=== PATIENT | female | born 1945 | race Caucasian/White ===

== ENCOUNTER 2017-01-01 21:22 | Inpatient (IN) | payer MEDICARE ==
[~2017-01-01] VITALS: Ht 157.5 cm; Wt 61.5 kg
[~2017-01-01 21:22] MED LIST: ASPI-515 PO; CO Q10 PO; ESTRODIOL PO; FLUO20CA19 PO; TAGAMET; WILL BRING LIST
[2017-01-01] MEDS ORDERED: DIAZEPAM 5 MG/ML, 2ML ONE ×2 (22:25→22:26)
[2017-01-01] MEDS ORDERED: MORPHINE SULFATE 4 MG/ML, 1ML ONE (22:25)
[2017-01-01] MEDS ORDERED: ONDANSETRON 2MG/ML, 2ML ONE (22:26)
[2017-01-01] MEDS ORDERED: KETOROLAC 30 MG/1 ML ONE (22:45)
[2017-01-01] MEDS ORDERED: SODIUM CHLORIDE 0.9% 1,000ML IVBOLUS ONE (23:00)
[2017-01-01] MEDS ORDERED: SODIUM CHLORIDE FLUSH 10ML SYR IVF ONE (23:00)
[2017-01-01] MEDS ORDERED: METHOCARBAMOL 1,000 MG in DEXTROSE 5% 100 ML IV ONE (23:00)
[2017-01-01] MEDS ORDERED: KETOROLAC 30 MG/1 ML IVPush ONE (23:00)
[2017-01-01 23:10] LABS: HEMATOCRIT 50.9 % (34.6-47.8); HEMOGLOBIN 16.6 g/dL (11.7-16.4); WHITE BLOOD COUNT 23.6 x10^3/uL (3.4-10)
[2017-01-01 23:14] LABS: DIFF TOTAL CELLS COUNTED 100 CELL DIFF
[2017-01-01 23:18] LABS: BLOOD UREA NITROGEN 25 mg/dL (7-18)
[2017-01-01] MEDS ORDERED: HYDROmorphone 1 MG/ML, 1ML ONE (23:27)
[2017-01-01] MEDS ORDERED: HYDROmorphone 1 MG/ML, 1ML IV ONE (23:30)
[2017-01-02] VITALS (16 sets, daily range): BP systolic 70–127; BP diastolic 50–68
[2017-01-02] LABS: VERIFY COUNTS? YES
[2017-01-02] MEDS ORDERED: SODIUM CHLORIDE 0.9% 1,000ML IVBOLUS ONE
[2017-01-02] MEDS ORDERED: OMNIPAQUE 350 MG/ML, 100ML BOTTLE ONE (00:24)
[2017-01-02] MEDS ORDERED: THROMBIN 20,000 UNIT VIAL TP ONE (00:28)
[2017-01-02] MEDS ORDERED: HEPARIN 1,000 UNITS/ML, 30ML ONE ×3 (00:29→03:18)
[2017-01-02] MEDS ORDERED: BACITRACIN 50,000 UNIT ONE ×2 (00:29→01:56)
[2017-01-02] MEDS ORDERED: PAPAVERINE 30 MG/ML, 2ML ONE (00:30)
[2017-01-02] MEDS ORDERED: FENTANYL PF 100 MCG/2ML ONE ×3 (01:12→06:19)
[2017-01-02] MEDS ORDERED: PHENYLEPHRINE 10 MG/ML ONE (01:28)
[2017-01-02] MEDS ORDERED: ONDANSETRON 2MG/ML, 2ML ONE (01:28)
[2017-01-02] MEDS ORDERED: CEFAZOLIN 1,000 MG ONE (01:28)
[2017-01-02] MEDS ORDERED: SUCCINYLCHOLINE 20 MG/ML, 10ML ONE (01:28)
[2017-01-02] MEDS ORDERED: ROCURONIUM 10 MG/ML ONE (01:28)
[2017-01-02] MEDS ORDERED: PROPOFOL 10 MG/ML, 20ML ONE (01:28)
[2017-01-02] MEDS ORDERED: ONDANSETRON 2MG/ML, 2ML IVPush PRN ×2 (02:30→06:30)
[2017-01-02] MEDS ORDERED: LABETALOL 5MG/ML, 20ML IV PRN ×2 (02:30→06:30)
[2017-01-02] MEDS ORDERED: OXYcodone 5 MG/5 ML ORAL.SOL UDC PO PRN ×2 (02:30→06:30)
[2017-01-02] MEDS ORDERED: HYDROmorphone 1 MG/ML, 1ML IV PRN ×2 (02:30→06:30)
[2017-01-02] MEDS ORDERED: hydrALAzine 20 MG/ML, 1ML IV PRN ×2 (02:30→06:30)
[2017-01-02] MEDS ORDERED: FENTANYL PF 100 MCG/2ML IV PRN ×2 (02:30→06:30)
[2017-01-02] MEDS ORDERED: ALBUMIN HUMAN 5% 500 ML ONE ×2 (02:51→03:52)
[2017-01-02] MEDS ORDERED: HEPARIN 25,000 UNITS/500ML PMX 500 ML IV SCH ×2 (04:30→08:00)
[2017-01-02] MEDS ORDERED: VISIPAQUE 270 MG/ML, 150ML BOTTLE ONE (04:48)
[2017-01-02 06:11] LABS: ASPARTATE AMINO TRANSFERASE 13 U/L (15-37); BLOOD UREA NITROGEN 17 mg/dL (7-18)
[2017-01-02 06:41] LABS: HEMATOCRIT 28.7 % (34.6-47.8); HEMOGLOBIN 9.5 g/dL (11.7-16.4)
[2017-01-02] MEDS ORDERED: HEPARIN 5,000 UNITS/ML, 1ML IV ONE (08:00)
[2017-01-02] MEDS ORDERED: HEPARIN 25,000 UNITS/500ML PMX 500 ML IV PRN (08:00)
[2017-01-02] MEDS ORDERED: HEPARIN 5,000 UNITS/ML, 1ML IV PRN (08:00)
[2017-01-02] MEDS ORDERED: D5%-LR+KCL 20MEQ 1,000 ML IV SCH (08:00)
[2017-01-02] MEDS ORDERED: ONDANSETRON 2MG/ML, 2ML IV PRN (08:00)
[2017-01-02] MEDS: CEFAZOLIN PMX 1GM/50ML 50 ML IVPB SCH ×2 (08:16→15:41)
[2017-01-02] MEDS ORDERED: LACTATED RINGERS 500 ML IVBOLUS ONE (09:00)
[2017-01-02 10:54] LABS: WHITE BLOOD COUNT 9.7 x10^3/uL (3.4-10)
[2017-01-02 10:56] LABS: HEMATOCRIT 13.9 % (34.6-47.8); HEMOGLOBIN 4.5 g/dL (11.7-16.4)
[2017-01-02] MEDS ORDERED: D5%-LACTATED RINGERS 1,000 ML IV SCH (11:00)
[2017-01-02 11:05] LABS: BLOOD UREA NITROGEN 18 mg/dL (7-18)
[2017-01-02] MEDS ORDERED: SODIUM CHLORIDE 0.9% 500 ML IV SCH (11:05)
[2017-01-02 11:28] LABS: ANTI-Xa-UNFRACTIONATED HEP 0.47 IU/mL (0.30-0.70)
[2017-01-02] MEDS ORDERED: PROTAMINE SULFATE 50 MG in SODIUM CHLORIDE 0.9% 50 ML IV ONE (11:30)
[2017-01-02] MEDS: NOREPINEPHRINE 4 MG in SODIUM CHLORIDE 0.9% 246 ML IV PRN ×2 (13:33→22:05)
[2017-01-02] MEDS: LACTATED RINGERS 1,000 ML IV SCH ×2 (13:34→18:35)
[2017-01-02 16:53] LABS: HEMATOCRIT 28.7 % (34.6-47.8); HEMOGLOBIN 9.7 g/dL (11.7-16.4); WHITE BLOOD COUNT 9.5 x10^3/uL (3.4-10)
[2017-01-02] MEDS ORDERED: FUROSEMIDE 20 MG/2 ML IV ONE (17:30)
[2017-01-02 21:54] LABS: HEMATOCRIT 25.3 % (34.6-47.8); HEMOGLOBIN 8.6 g/dL (11.7-16.4)
[2017-01-03 08:16] LABS: HEMOGLOBIN 8.2 g/dL (11.7-16.4)
[2017-01-03] MEDS ORDERED: HEPARIN 5,000 UNITS/ML, 1ML ONE (08:18)
[2017-01-03] MEDS ORDERED: HEPARIN 25,000 UNITS/500ML PMX 500 ML ONE (08:18)
[2017-01-03] MEDS ORDERED: HEPARIN 5,000 UNITS/ML, 1ML IV ONE (09:00)
[2017-01-03] MEDS: HEPARIN 25,000 UNITS/500ML PMX 500 ML IV PRN (09:00)
[2017-01-03] MEDS: LACTATED RINGERS 1,000 ML IV SCH ×4 (09:30→21:35)
[2017-01-03] MEDS: FAMOTIDINE 20 MG TABLET PO SCH ×2 (11:16→20:34)
[2017-01-03] MEDS: FLUOXETINE 20 MG CAPSULE PO SCH (11:16)
[2017-01-03 12:46] LABS: BLOOD UREA NITROGEN 15 mg/dL (7-18)
[2017-01-03 12:51] LABS: HEMATOCRIT 20.7 % (34.6-47.8)
[2017-01-03 14:10] VITALS: BP 101/54
[2017-01-03] MEDS: HEPARIN 5,000 UNITS/ML, 1ML IV PRN (17:03)
[2017-01-03 19:31] LABS: HEMATOCRIT 23.3 % (34.6-47.8); HEMOGLOBIN 7.7 g/dL (11.7-16.4)
[2017-01-04 01:28] LABS: HEMOGLOBIN 7.3 g/dL (11.7-16.4)
[2017-01-04 01:32] LABS: HEMATOCRIT 21.9 % (34.6-47.8)
[2017-01-04 02:14] VITALS: BP 107/47
[2017-01-04 02:32] VITALS: BP 97/47
[2017-01-04 04:00] VITALS: BP 119/57
[2017-01-04] MEDS: LACTATED RINGERS 1,000 ML IV SCH ×3 (04:10→18:50)
[2017-01-04 04:41] VITALS: BP 110/54
[2017-01-04 06:05] LABS: BLOOD UREA NITROGEN 10 mg/dL (7-18)
[2017-01-04 06:31] LABS: HEMATOCRIT 27.3 % (34.6-47.8); HEMOGLOBIN 9.2 g/dL (11.7-16.4)
[2017-01-04] MEDS: FAMOTIDINE 20 MG TABLET PO SCH ×2 (08:32→21:00)
[2017-01-04] MEDS: FLUOXETINE 20 MG CAPSULE PO SCH (08:33)
[2017-01-04] MEDS ORDERED: BUPIVACAINE/PF 0.5% ONE (10:15)
[2017-01-04 12:28] LABS: HEMATOCRIT 28.3 % (34.6-47.8); HEMOGLOBIN 9.3 g/dL (11.7-16.4); WHITE BLOOD COUNT 7.8 x10^3/uL (3.4-10)
[2017-01-04] MEDS: HEPARIN 25,000 UNITS/500ML PMX 500 ML IV PRN (16:41)
[2017-01-04] MEDS ORDERED: FENTANYL PF 100 MCG/2ML ONE (18:04)
[2017-01-04] MEDS ORDERED: KETAMINE 10 MG/ML, 20ML ONE (18:04)
[2017-01-04] MEDS ORDERED: PROPOFOL 10 MG/ML, 20ML ONE (18:07)
[2017-01-04] MEDS ORDERED: ONDANSETRON 2MG/ML, 2ML ONE (18:07)
[2017-01-04] MEDS ORDERED: CEFAZOLIN 1,000 MG ONE (18:07)
[2017-01-04] MEDS ORDERED: FENTANYL PF 100 MCG/2ML IV PRN (19:00)
[2017-01-04] MEDS ORDERED: ONDANSETRON 2MG/ML, 2ML IVPush PRN (19:00)
[2017-01-04] MEDS ORDERED: LABETALOL 5MG/ML, 20ML IV PRN (19:00)
[2017-01-04] MEDS ORDERED: OXYcodone 5 MG/5 ML ORAL.SOL UDC PO PRN (19:00)
[2017-01-04] MEDS ORDERED: HYDROmorphone 1 MG/ML, 1ML IV PRN (19:00)
[2017-01-04] MEDS ORDERED: PROMETHAZINE 25 MG/ML, 1ML IV PRN (19:00)
[2017-01-04] MEDS ORDERED: hydrALAzine 20 MG/ML, 1ML IV PRN (19:00)
[2017-01-04] MEDS ORDERED: ALBUTEROL/IPRATROPIUM 2.5MG/0.5MG, 3 ML ONE (20:25)
[2017-01-04] MEDS ORDERED: hydrALAzine 20 MG/ML, 1ML ONE (20:28)
[2017-01-05] MEDS: HYDROcodone/APAP 10/325 MG TABLET PO PRN ×3 (01:11→14:22)
[2017-01-05] MEDS: LACTATED RINGERS 1,000 ML IV SCH ×2 (01:13→09:12)
[2017-01-05 04:00] VITALS: BP 119/59
[2017-01-05 04:40] LABS: BLOOD UREA NITROGEN 8 mg/dL (7-18)
[2017-01-05 04:44] LABS: ASPARTATE AMINO TRANSFERASE 53 U/L (15-37)
[2017-01-05 04:53] LABS: HEMATOCRIT 25.5 % (34.6-47.8); HEMOGLOBIN 8.6 g/dL (11.7-16.4); WHITE BLOOD COUNT 10.9 x10^3/uL (3.4-10)
[2017-01-05] MEDS: FLUOXETINE 20 MG CAPSULE PO SCH (08:22)
[2017-01-05] MEDS: FAMOTIDINE 20 MG TABLET PO SCH ×2 (08:22→23:05)
[2017-01-05] MEDS ORDERED: KETOROLAC 30 MG/1 ML IVPush ONE (17:30)
[2017-01-05] MEDS ORDERED: MAGNESIUM SULFATE PMX 4GM/100M 100 ML IV ONE (18:30)
[2017-01-05] MEDS: HEPARIN 25,000 UNITS/500ML PMX 500 ML IV PRN (23:04)
[2017-01-06] VITALS (7 sets, daily range): BP systolic 84–124; BP diastolic 48–68
[2017-01-06 01:43] LABS: HEMATOCRIT 18.8 % (34.6-47.8); HEMOGLOBIN 6.2 g/dL (11.7-16.4)
[2017-01-06] MEDS ORDERED: SODIUM CHLORIDE 0.9% 1,000ML IVBOLUS ONE ×2 (02:30→10:30)
[2017-01-06] MEDS: HYDROcodone/APAP 10/325 MG TABLET PO PRN ×2 (04:27→22:19)
[2017-01-06] MEDS: HEPARIN 5,000 UNITS/ML, 1ML IV PRN (06:11)
[2017-01-06 07:52] LABS: HEMATOCRIT 25.6 % (34.6-47.8); HEMOGLOBIN 8.6 g/dL (11.7-16.4); WHITE BLOOD COUNT 11.3 x10^3/uL (3.4-10)
[2017-01-06] MEDS: FLUOXETINE 20 MG CAPSULE PO SCH (09:00)
[2017-01-06] MEDS: FAMOTIDINE 20 MG TABLET PO SCH (09:00)
[2017-01-06 10:18] LABS: HEMATOCRIT 19.8 % (34.6-47.8); HEMOGLOBIN 6.6 g/dL (11.7-16.4)
[2017-01-06] MEDS ORDERED: GLYCOPYRROLATE 0.2MG/1ML ONE (10:45)
[2017-01-06] MEDS ORDERED: ONDANSETRON 2MG/ML, 2ML ONE (10:45)
[2017-01-06] MEDS ORDERED: CEFAZOLIN 1,000 MG ONE (10:45)
[2017-01-06] MEDS ORDERED: NEOSTIGMINE 1 MG/ML, 10ML ONE (10:45)
[2017-01-06] MEDS ORDERED: ROCURONIUM 10 MG/ML ONE (10:45)
[2017-01-06] MEDS ORDERED: ETOMIDATE 20 MG/10 ML ONE (10:45)
[2017-01-06] MEDS ORDERED: PHENYLEPHRINE 10 MG/ML ONE (10:45)
[2017-01-06] MEDS ORDERED: HYDROmorphone 1 MG/ML, 1ML IV PRN (12:00)
[2017-01-06] MEDS ORDERED: PROMETHAZINE 25 MG/ML, 1ML IV PRN (12:00)
[2017-01-06] MEDS ORDERED: ALBUTEROL SULFATE 2.5 MG/3 ML NPPB PRN (12:00)
[2017-01-06] MEDS ORDERED: LABETALOL 5MG/ML, 20ML IV PRN (12:00)
[2017-01-06] MEDS ORDERED: EPHEDRINE 50 MG/ML, 1ML IVPush PRN (12:00)
[2017-01-06] MEDS ORDERED: ACETAMINOPHEN 325 MG TABLET PO PRN (12:00)
[2017-01-06] MEDS ORDERED: FENTANYL PF 100 MCG/2ML IV PRN (12:00)
[2017-01-06] MEDS ORDERED: ONDANSETRON 2MG/ML, 2ML IVPush PRN (12:00)
[2017-01-06] MEDS ORDERED: METOPROLOL 1 MG/ML, 5ML IV PRN (12:00)
[2017-01-06] MEDS ORDERED: hydrALAzine 20 MG/ML, 1ML IV PRN (12:00)
[2017-01-06] MEDS ORDERED: OXYcodone 5 MG/5 ML ORAL.SOL UDC PO PRN (12:00)
[2017-01-06 12:05] LABS: HEMATOCRIT 29.2 % (34.6-47.8); HEMOGLOBIN 9.7 g/dL (11.7-16.4)
[2017-01-06] MEDS: SODIUM CHLORIDE 0.9% 1,000 ML IV SCH (17:17)
[2017-01-06] MEDS ORDERED: BISACODYL 10 MG SUPP PR PRN (20:00)
[2017-01-06] MEDS ORDERED: POLYETHYLENE GLYCOL 17 GM PACKET PO PRN (20:00)
[2017-01-06 20:55] LABS: HEMOGLOBIN 7.7 g/dL (11.7-16.4)
[2017-01-06] MEDS: DOCUSATE 100 MG CAPSULE PO SCH (22:18)
[2017-01-07] VITALS (9 sets, daily range): BP systolic 99–144; BP diastolic 53–92
[2017-01-07 04:39] LABS: WHITE BLOOD COUNT 8.9 x10^3/uL (3.4-10)
[2017-01-07 04:40] LABS: HEMATOCRIT 21.1 % (34.6-47.8)
[2017-01-07 04:46] LABS: BLOOD UREA NITROGEN 8 mg/dL (7-18)
[2017-01-07 04:49] LABS: ASPARTATE AMINO TRANSFERASE 34 U/L (15-37)
[2017-01-07] MEDS ORDERED: SODIUM CHLORIDE 0.9% 500 ML IV SCH (04:50)
[2017-01-07] MEDS: FLUOXETINE 20 MG CAPSULE PO SCH (08:24)
[2017-01-07] MEDS: FAMOTIDINE 20 MG TABLET PO SCH (08:24)
[2017-01-07] MEDS: DOCUSATE 100 MG CAPSULE PO SCH ×2 (08:24→19:54)
[2017-01-07] MEDS: SODIUM CHLORIDE 0.9% 1,000 ML IV SCH (08:26)
[2017-01-07] MEDS ORDERED: BISACODYL 10 MG SUPP PR PRN (14:30)
[2017-01-07] MEDS ORDERED: CALCIUM CHLORIDE 13.6 MEQ in SODIUM CHLORIDE 0.9% 100 ML IV ONE (16:00)
[2017-01-07] MEDS: HYDROcodone/APAP 10/325 MG TABLET PO PRN (19:54)
[2017-01-07] MEDS ORDERED: ALBUTEROL SULFATE 2.5 MG/3 ML ONE (20:26)
[2017-01-08] MEDS: HYDROcodone/APAP 10/325 MG TABLET PO PRN ×2 (01:52→20:25)
[2017-01-08 04:28] LABS: HEMATOCRIT 31.5 % (34.6-47.8); HEMOGLOBIN 10.9 g/dL (11.7-16.4); WHITE BLOOD COUNT 10.4 x10^3/uL (3.4-10)
[2017-01-08 04:36] LABS: BLOOD UREA NITROGEN 9 mg/dL (7-18)
[2017-01-08 04:45] VITALS: BP 150/74
[2017-01-08] MEDS: FAMOTIDINE 20 MG TABLET PO SCH (09:00)
[2017-01-08] MEDS: DOCUSATE 100 MG CAPSULE PO SCH ×2 (09:00→20:25)
[2017-01-08] MEDS: FLUOXETINE 20 MG CAPSULE PO SCH (09:00)
[2017-01-08] MEDS ORDERED: BUPIVACAINE/PF 0.5% ONE (10:53)
[2017-01-08] MEDS ORDERED: FENTANYL PF 100 MCG/2ML ONE ×2 (11:19)
[2017-01-08] MEDS ORDERED: CEFAZOLIN 1,000 MG ONE (11:20)
[2017-01-08] MEDS ORDERED: ALBUTEROL SULFATE 200 PUFFS/8.5 GR INH ONE (11:20)
[2017-01-08] MEDS ORDERED: ONDANSETRON 2MG/ML, 2ML ONE ×2 (11:20→12:31)
[2017-01-08] MEDS ORDERED: DEXAMETHASONE 4 MG/ML, 1ML ONE (11:20)
[2017-01-08] MEDS ORDERED: PROPOFOL 10 MG/ML, 20ML ONE (11:20)
[2017-01-08] MEDS ORDERED: SUCCINYLCHOLINE 20 MG/ML, 10ML ONE (11:20)
[2017-01-08] MEDS ORDERED: PROMETHAZINE 25 MG/ML, 1ML IV PRN (12:00)
[2017-01-08] MEDS ORDERED: hydrALAzine 20 MG/ML, 1ML IV PRN (12:00)
[2017-01-08] MEDS ORDERED: METOPROLOL 1 MG/ML, 5ML IV PRN (12:00)
[2017-01-08] MEDS ORDERED: ALBUTEROL SULFATE 2.5 MG/3 ML NPPB PRN ×2 (12:00)
[2017-01-08] MEDS ORDERED: FENTANYL PF 100 MCG/2ML IV PRN (12:00)
[2017-01-08] MEDS ORDERED: MEPERIDINE/PF 25MG/0.5ML IVPush PRN (12:00)
[2017-01-08] MEDS ORDERED: OXYcodone 5 MG/5 ML ORAL.SOL UDC PO PRN (12:00)
[2017-01-08] MEDS ORDERED: ACETAMINOPHEN 325 MG TABLET PO PRN (12:00)
[2017-01-08] MEDS ORDERED: MIDAZOLAM 1 MG/ML, 2ML IV PRN (12:00)
[2017-01-08] MEDS ORDERED: ALBUTEROL/IPRATROPIUM 2.5MG/0.5MG, 3 ML ONE (12:15)
[2017-01-08] MEDS ORDERED: HYDROmorphone 2 MG/ML, 1ML ONE (12:31)
[2017-01-08] MEDS: HYDROmorphone 1 MG/ML, 1ML IV PRN ×6 (12:32→13:05)
[2017-01-08] MEDS ORDERED: HYDROmorphone 1 MG/ML, 1ML ONE (12:58)
[2017-01-09] MEDS: HYDROcodone/APAP 10/325 MG TABLET PO PRN (01:12)
[2017-01-09 04:31] VITALS: BP 138/69
[2017-01-09 05:57] LABS: ASPARTATE AMINO TRANSFERASE 155 U/L (15-37); BLOOD UREA NITROGEN 14 mg/dL (7-18)
[2017-01-09 06:03] LABS: HEMATOCRIT 31.1 % (34.6-47.8); HEMOGLOBIN 10.3 g/dL (11.7-16.4); WHITE BLOOD COUNT 8.6 x10^3/uL (3.4-10)
[2017-01-09] MEDS: DOCUSATE 100 MG CAPSULE PO SCH ×2 (08:33→20:38)
[2017-01-09] MEDS: FAMOTIDINE 20 MG TABLET PO SCH (08:33)
[2017-01-09] MEDS: FLUOXETINE 20 MG CAPSULE PO SCH (08:33)
[2017-01-09] MEDS ORDERED: OXYcodone 5 MG/5 ML ORAL.SOL UDC PO PRN (09:00)
[2017-01-09 14:30] VITALS: BP 164/78
[2017-01-09] MEDS: OXYcodone 5 MG/5 ML ORAL.SOL UDC PO PRN ×2 (15:38→21:31)
[2017-01-09 19:45] VITALS: BP 143/82
[2017-01-10 02:23] VITALS: BP 168/83
[2017-01-10] MEDS: OXYcodone 5 MG/5 ML ORAL.SOL UDC PO PRN ×3 (03:42→22:11)
[2017-01-10 06:02] LABS: ASPARTATE AMINO TRANSFERASE 50 U/L (15-37); BLOOD UREA NITROGEN 18 mg/dL (7-18)
[2017-01-10] MEDS ORDERED: BUPIVACAINE/PF 0.5% ONE (07:24)
[2017-01-10] MEDS ORDERED: MEPERIDINE/PF 25MG/0.5ML IVPush PRN (07:30)
[2017-01-10] MEDS ORDERED: ACETAMINOPHEN 325 MG TABLET PO PRN (07:30)
[2017-01-10] MEDS ORDERED: PROMETHAZINE 25 MG/ML, 1ML IV PRN (07:30)
[2017-01-10] MEDS ORDERED: FENTANYL PF 100 MCG/2ML IV PRN (07:30)
[2017-01-10] MEDS ORDERED: hydrALAzine 20 MG/ML, 1ML IV PRN (07:30)
[2017-01-10] MEDS ORDERED: ALBUTEROL SULFATE 2.5 MG/3 ML NPPB PRN (07:30)
[2017-01-10] MEDS ORDERED: LABETALOL 5MG/ML, 20ML IV PRN (07:30)
[2017-01-10] MEDS ORDERED: HYDROmorphone 1 MG/ML, 1ML IV PRN (07:30)
[2017-01-10] MEDS ORDERED: OXYcodone 5 MG/5 ML ORAL.SOL UDC PO PRN (07:30)
[2017-01-10] MEDS ORDERED: ONDANSETRON 2MG/ML, 2ML IVPush PRN (07:30)
[2017-01-10] MEDS ORDERED: FENTANYL PF 100 MCG/2ML ONE ×2 (07:31→07:32)
[2017-01-10] MEDS ORDERED: MIDAZOLAM 1 MG/ML, 2ML ONE ×2 (07:31)
[2017-01-10] MEDS ORDERED: SUCCINYLCHOLINE 20 MG/ML, 10ML ONE (07:40)
[2017-01-10] MEDS ORDERED: DEXAMETHASONE 4 MG/ML, 1ML ONE (07:40)
[2017-01-10] MEDS ORDERED: ONDANSETRON 2MG/ML, 2ML ONE (07:40)
[2017-01-10] MEDS ORDERED: CEFAZOLIN 1,000 MG ONE (07:40)
[2017-01-10] MEDS ORDERED: PROPOFOL 10 MG/ML, 20ML ONE (07:40)
[2017-01-10] MEDS ORDERED: HYDROmorphone 2 MG/ML, 1ML ONE (08:04)
[2017-01-10] MEDS ORDERED: METOPROLOL 1 MG/ML, 5ML ONE (08:35)
[2017-01-10] MEDS ORDERED: HYDROmorphone 1 MG/ML, 1ML ONE (08:50)
[2017-01-10 10:00] VITALS: BP 163/83
[2017-01-10] MEDS: DOCUSATE 100 MG CAPSULE PO SCH ×2 (10:24→20:34)
[2017-01-10] MEDS: FLUOXETINE 20 MG CAPSULE PO SCH (10:24)
[2017-01-10] MEDS: FAMOTIDINE 20 MG TABLET PO SCH (10:24)
[2017-01-10 14:24] VITALS: BP 125/80
[2017-01-10 18:41] VITALS: BP 159/84
[2017-01-10] MEDS: POLYETHYLENE GLYCOL 17 GM PACKET PO PRN (20:33)
[2017-01-11 00:29] VITALS: BP_SYST 165; BP_SYST 181; BP_DIAS 87; BP_DIAS 92
[2017-01-11 08:28] VITALS: BP 154/85
[2017-01-11] MEDS: FLUOXETINE 20 MG CAPSULE PO SCH (08:47)
[2017-01-11] MEDS: DOCUSATE 100 MG CAPSULE PO SCH ×2 (08:47→20:27)
[2017-01-11] MEDS: FAMOTIDINE 20 MG TABLET PO SCH (08:47)
[2017-01-11] MEDS: HYDROcodone/APAP 5/325 TABLET PO PRN ×3 (10:24→23:16)
[2017-01-11] MEDS: RIVAROXABAN 20 MG TABLET PO SCH (11:48)
[2017-01-11 13:46] VITALS: BP 158/93
[2017-01-11 18:42] VITALS: BP 166/91
[2017-01-11] MEDS: POLYETHYLENE GLYCOL 17 GM PACKET PO PRN (20:27)
[2017-01-11] MEDS ORDERED: RIVA20TA PO (23:59)
[2017-01-12 00:36] VITALS: BP 159/89
[2017-01-12] MEDS: RIVAROXABAN 20 MG TABLET PO SCH (05:55)
[2017-01-12] MEDS: HYDROcodone/APAP 5/325 TABLET PO PRN ×4 (07:38→22:43)
[2017-01-12 08:30] VITALS: BP 144/78
[2017-01-12] MEDS ORDERED: HYDR-3240 PO (09:45)
[2017-01-12] MEDS ORDERED: MAGNESIUM HYDROXIDE 8%, 30ML UDC ONE (10:10)
[2017-01-12] MEDS: FAMOTIDINE 20 MG TABLET PO SCH (10:12)
[2017-01-12] MEDS: MAGNESIUM HYDROXIDE 8%, 30ML UDC PO PRN (10:12)
[2017-01-12] MEDS: DOCUSATE 100 MG CAPSULE PO SCH ×2 (10:12→21:14)
[2017-01-12] MEDS: FLUOXETINE 20 MG CAPSULE PO SCH (10:12)
[2017-01-12 14:27] VITALS: BP 137/78
[2017-01-12 19:37] VITALS: BP 157/73
[2017-01-13 00:58] VITALS: BP 156/83
[2017-01-13] MEDS: HYDROcodone/APAP 5/325 TABLET PO PRN ×3 (05:43→18:26)
[2017-01-13] MEDS: RIVAROXABAN 20 MG TABLET PO SCH (05:43)
[2017-01-13 07:00] VITALS: BP 130/77
[2017-01-13] MEDS: FLUOXETINE 20 MG CAPSULE PO SCH (08:57)
[2017-01-13] MEDS: FAMOTIDINE 20 MG TABLET PO SCH (08:57)
[2017-01-13] MEDS: DOCUSATE 100 MG CAPSULE PO SCH ×2 (08:57→21:18)
[2017-01-13 12:22] VITALS: BP 154/84
[2017-01-13 18:42] VITALS: BP 149/78
[2017-01-14] MEDS: HYDROcodone/APAP 5/325 TABLET PO PRN ×5 (00:28→20:47)
[2017-01-14 03:55] VITALS: BP 138/70
[2017-01-14 05:07] LABS: HEMATOCRIT 34.2 % (34.6-47.8); HEMOGLOBIN 11.3 g/dL (11.7-16.4); WHITE BLOOD COUNT 9.9 x10^3/uL (3.4-10)
[2017-01-14 05:08] LABS: BLOOD UREA NITROGEN 21 mg/dL (7-18)
[2017-01-14 05:39] LABS: DIFF TOTAL CELLS COUNTED 100 CELL DIFF
[2017-01-14] MEDS: RIVAROXABAN 20 MG TABLET PO SCH (05:40)
[2017-01-14 05:43] LABS: VERIFY COUNTS? YES
[2017-01-14 08:28] VITALS: BP 114/68
[2017-01-14] MEDS: FAMOTIDINE 20 MG TABLET PO SCH (09:32)
[2017-01-14] MEDS: DOCUSATE 100 MG CAPSULE PO SCH ×2 (09:32→20:47)
[2017-01-14] MEDS: FLUOXETINE 20 MG CAPSULE PO SCH (09:32)
[2017-01-14] MEDS ORDERED: CALCIUM CARBONATE 500 MG TAB.CHEW PO PRN (13:00)
[2017-01-14 14:30] VITALS: BP 133/73
[2017-01-14 19:22] VITALS: BP 168/96
[2017-01-15] MEDS: HYDROcodone/APAP 5/325 TABLET PO PRN ×6 (01:23→23:54)
[2017-01-15 03:40] VITALS: BP 107/70
[2017-01-15 05:19] LABS: BLOOD UREA NITROGEN 24 mg/dL (7-18)
[2017-01-15 05:47] LABS: HEMATOCRIT 35.3 % (34.6-47.8); HEMOGLOBIN 11.8 g/dL (11.7-16.4); WHITE BLOOD COUNT 10.4 x10^3/uL (3.4-10)
[2017-01-15] MEDS: RIVAROXABAN 20 MG TABLET PO SCH (05:52)
[2017-01-15] MEDS: FAMOTIDINE 20 MG TABLET PO SCH (07:05)
[2017-01-15] MEDS: DOCUSATE 100 MG CAPSULE PO SCH ×2 (07:05→19:48)
[2017-01-15] MEDS: FLUOXETINE 20 MG CAPSULE PO SCH (07:05)
[2017-01-15 07:40] VITALS: BP 158/84
[2017-01-15] MEDS: MAGNESIUM HYDROXIDE 8%, 30ML UDC PO PRN (09:24)
[2017-01-15] MEDS ORDERED: HYDROcodone/APAP 5/325 TABLET PO PRN (10:00)
[2017-01-15 13:04] VITALS: BP 156/99
[2017-01-15 20:52] VITALS: BP 123/75
[2017-01-16 03:28] VITALS: BP 131/80
[2017-01-16] MEDS: HYDROcodone/APAP 5/325 TABLET PO PRN ×3 (03:57→12:43)
[2017-01-16 05:58] LABS: HEMATOCRIT 37.7 % (34.6-47.8); HEMOGLOBIN 12.5 g/dL (11.7-16.4); WHITE BLOOD COUNT 8.9 x10^3/uL (3.4-10)
[2017-01-16] MEDS: RIVAROXABAN 20 MG TABLET PO SCH (06:15)
[2017-01-16 06:17] LABS: BLOOD UREA NITROGEN 31 mg/dL (7-18)
[2017-01-16] MEDS ORDERED: SODIUM CHLORIDE 0.9%, 500ML IVBOLUS ONE (07:30)
[2017-01-16] MEDS: SODIUM CHLORIDE 0.9% 1,000 ML IV SCH ×2 (07:45→16:00)
[2017-01-16] MEDS: FLUOXETINE 20 MG CAPSULE PO SCH (07:45)
[2017-01-16] MEDS: FAMOTIDINE 20 MG TABLET PO SCH (07:46)
[2017-01-16] MEDS: DOCUSATE 100 MG CAPSULE PO SCH (07:46)
[2017-01-16 07:57] VITALS: BP 136/83
[2017-01-16 15:25] VITALS: BP 136/81
[2017-01-16 17:00] VITALS: BP 148/89
== END 2017-01-16 17:11 | disposition home or self-care (01) | DRG 268 ==
LOC: ED 23:00 → ORIP 01-02 06:09 → CCU 01-02 07:24 → 4NOR 01-09 14:25
PROVIDERS: ADMIT Surgery; ATTEND Surgery
PROC: B41F1ZZ Fluoroscopy of Right Lower Extremity Arteries using Low Osmolar Contrast (ICD-10-PCS; 2017-01-02)
PROC: B41D1ZZ Fluoroscopy of Aorta and Bilateral Lower Extremity Arteries using Low Osmolar Contrast (ICD-10-PCS; 2017-01-02)
PROC: B41G1ZZ Fluoroscopy of Left Lower Extremity Arteries using Low Osmolar Contrast (ICD-10-PCS; 2017-01-02)
PROC: 04CK0ZZ Extirpation of Matter from Right Femoral Artery, Open Approach (ICD-10-PCS; 2017-01-02)
PROC: 04C03ZZ Extirpation of Matter from Abdominal Aorta, Percutaneous Approach (ICD-10-PCS; 2017-01-02)
PROC: 04CK3ZZ Extirpation of Matter from Right Femoral Artery, Percutaneous Approach (ICD-10-PCS; 2017-01-02)
PROC: 30233L1 Transfusion of Nonautologous Fresh Plasma into Peripheral Vein, Percutaneous Approach (ICD-10-PCS; 2017-01-02)
PROC: 30233N1 Transfusion of Nonautologous Red Blood Cells into Peripheral Vein, Percutaneous Approach (ICD-10-PCS; 2017-01-02)
PROC: 30233K1 Transfusion of Nonautologous Frozen Plasma into Peripheral Vein, Percutaneous Approach (ICD-10-PCS; 2017-01-02)
PROC: 6A550Z2 Pheresis of Platelets, Single (ICD-10-PCS; 2017-01-02)
PROC: 02HV33Z Insertion of Infusion Device into Superior Vena Cava, Percutaneous Approach (ICD-10-PCS; 2017-01-02)
PROC: B5181ZA Fluoroscopy of Superior Vena Cava using Low Osmolar Contrast, Guidance (ICD-10-PCS; 2017-01-02)
PROC: B548ZZA Ultrasonography of Superior Vena Cava, Guidance (ICD-10-PCS; 2017-01-02)
PROC: 04UL0KZ Supplement Left Femoral Artery with Nonautologous Tissue Substitute, Open Approach (ICD-10-PCS; 2017-01-02)
PROC: 04703DZ Dilation of Abdominal Aorta with Intraluminal Device, Percutaneous Approach (ICD-10-PCS; 2017-01-02)
PROC: 0KNT0ZZ Release Left Lower Leg Muscle, Open Approach (ICD-10-PCS; 2017-01-02)
PROC: 0KNS0ZZ Release Right Lower Leg Muscle, Open Approach (ICD-10-PCS; 2017-01-02)
PROC: 04CL0ZZ Extirpation of Matter from Left Femoral Artery, Open Approach (ICD-10-PCS; principal; 2017-01-02 00:45)
PROC: 0JQP0ZZ Repair Left Lower Leg Subcutaneous Tissue and Fascia, Open Approach (ICD-10-PCS; 2017-01-04)
PROC: 0JQN0ZZ Repair Right Lower Leg Subcutaneous Tissue and Fascia, Open Approach (ICD-10-PCS; 2017-01-04)
PROC: 0Y3H0ZZ Control Bleeding in Right Lower Leg, Open Approach (ICD-10-PCS; 2017-01-06)
DX: T82.868A Thrombosis due to vascular prosthetic devices, implants and grafts, initial encounter (principal); E43 Unspecified severe protein-calorie malnutrition; N17.0 Acute kidney failure with tubular necrosis; E87.2 Acidosis; K55.9 Vascular disorder of intestine, unspecified; T79.A21A Traumatic compartment syndrome of right lower extremity, initial encounter; D69.6 Thrombocytopenia, unspecified; D62 Acute posthemorrhagic anemia; E83.42 Hypomagnesemia; E83.51 Hypocalcemia; D72.829 Elevated white blood cell count, unspecified; Z68.24 Body mass index [BMI] 24.0-24.9, adult; F17.200 Nicotine dependence, unspecified, uncomplicated; F32.9 Major depressive disorder, single episode, unspecified; I73.9 Peripheral vascular disease, unspecified; I99.8 Other disorder of circulatory system; S81.801A Unspecified open wound, right lower leg, initial encounter; Y83.2 Surgical operation with anastomosis, bypass or graft as the cause of abnormal reaction of the patient, or of later complication, without mention of misadventure at the time of the procedure; Z88.1 Allergy status to other antibiotic agents; Z88.8 Allergy status to other drugs, medicaments and biological substances
CPT/HCPCS: 36415; 36569; 71010; 75635; 75710; 76700; 76937; 77001; 80048; 80053; 81001; 82040; 82330; 83605; 83735; 85014; 85018; 85025; 85027; 85520; 85610; 85730; 86850; 86900; 86923; 87040; 87081; 93005; 93970; 94640; 96365; 96375; C1760; J0690; J1100; J1170; J1644; J1885; J2250; J2270; J2405; J2704; J2710; J2720; J3010; J3490; J7120; J7613; P9045; Q9966; Q9967; C1751; C1757; C1768; C1876; J0330; J1940; J2370; J2440; J2800; J3475; J7030; J7040; J7050; P9016; P9017; P9035

== ENCOUNTER → 2017-01-23 | Outpatient (CLI) | payer MEDICARE ==
[~2017-01-23] MED LIST changes: +HYDR-3240 PO; +RIVA20TA PO
== END | disposition home or self-care (01) ==
LOC: WOUND 08:56
PROVIDERS: ATTEND Internal Medicine
DX: T81.31XA Disruption of external operation (surgical) wound, not elsewhere classified, initial encounter (principal); K21.9 Gastro-esophageal reflux disease without esophagitis; I73.9 Peripheral vascular disease, unspecified; F32.9 Major depressive disorder, single episode, unspecified; F41.9 Anxiety disorder, unspecified; Z87.891 Personal history of nicotine dependence; Y83.8 Other surgical procedures as the cause of abnormal reaction of the patient, or of later complication, without mention of misadventure at the time of the procedure; Y92.89 Other specified places as the place of occurrence of the external cause
CPT/HCPCS: 11042; G0463; WOU0463

== ENCOUNTER → 2017-01-30 | Outpatient (CLI) | payer MEDICARE | END | disposition home or self-care (01) | LOC: WOUND 10:30 | PROVIDERS: ATTEND Internal Medicine | DX: T81.31XD Disruption of external operation (surgical) wound, not elsewhere classified, subsequent encounter (principal); F41.9 Anxiety disorder, unspecified; K21.9 Gastro-esophageal reflux disease without esophagitis; F32.9 Major depressive disorder, single episode, unspecified; I73.9 Peripheral vascular disease, unspecified; Z87.891 Personal history of nicotine dependence; Y83.8 Other surgical procedures as the cause of abnormal reaction of the patient, or of later complication, without mention of misadventure at the time of the procedure | CPT/HCPCS: 97597 ==

== ENCOUNTER → 2017-02-06 | Outpatient (CLI) | payer MEDICARE | END | disposition home or self-care (01) | LOC: WOUND 10:34 | PROVIDERS: ATTEND Specialist | DX: T81.31XD Disruption of external operation (surgical) wound, not elsewhere classified, subsequent encounter (principal); F41.9 Anxiety disorder, unspecified; K21.9 Gastro-esophageal reflux disease without esophagitis; F32.9 Major depressive disorder, single episode, unspecified; I73.9 Peripheral vascular disease, unspecified; F17.200 Nicotine dependence, unspecified, uncomplicated; Y83.8 Other surgical procedures as the cause of abnormal reaction of the patient, or of later complication, without mention of misadventure at the time of the procedure | CPT/HCPCS: G0463; WOU0463 ==

== ENCOUNTER → 2017-02-13 | Outpatient (CLI) | payer MEDICARE | END | disposition home or self-care (01) | LOC: WOUND 13:19 | PROVIDERS: ATTEND Nurse Practitioner Family | DX: T81.31XD Disruption of external operation (surgical) wound, not elsewhere classified, subsequent encounter (principal); K21.9 Gastro-esophageal reflux disease without esophagitis; I73.9 Peripheral vascular disease, unspecified; F32.9 Major depressive disorder, single episode, unspecified; F41.9 Anxiety disorder, unspecified; Z87.891 Personal history of nicotine dependence; Z68.24 Body mass index [BMI] 24.0-24.9, adult; Y83.8 Other surgical procedures as the cause of abnormal reaction of the patient, or of later complication, without mention of misadventure at the time of the procedure | CPT/HCPCS: 97597 ==

== ENCOUNTER → 2017-02-20 | Outpatient (CLI) | payer MEDICARE | END | disposition home or self-care (01) | LOC: WOUND 13:11 | PROVIDERS: ATTEND Nurse Practitioner Family | DX: T81.31XD Disruption of external operation (surgical) wound, not elsewhere classified, subsequent encounter (principal); F41.9 Anxiety disorder, unspecified; K21.9 Gastro-esophageal reflux disease without esophagitis; F32.9 Major depressive disorder, single episode, unspecified; I73.9 Peripheral vascular disease, unspecified; Z87.891 Personal history of nicotine dependence; Y83.8 Other surgical procedures as the cause of abnormal reaction of the patient, or of later complication, without mention of misadventure at the time of the procedure | CPT/HCPCS: 11042 ==

== ENCOUNTER → 2017-02-26 | Outpatient (CLI) | payer MEDICARE | END | disposition home or self-care (01) | LOC: WOUND 13:00 | PROVIDERS: ATTEND Internal Medicine | DX: T81.31XD Disruption of external operation (surgical) wound, not elsewhere classified, subsequent encounter (principal); F41.9 Anxiety disorder, unspecified; K21.9 Gastro-esophageal reflux disease without esophagitis; F32.9 Major depressive disorder, single episode, unspecified; I73.9 Peripheral vascular disease, unspecified; Z87.891 Personal history of nicotine dependence; Z68.24 Body mass index [BMI] 24.0-24.9, adult; Y83.8 Other surgical procedures as the cause of abnormal reaction of the patient, or of later complication, without mention of misadventure at the time of the procedure | CPT/HCPCS: 97597 ==

== ENCOUNTER → 2017-03-16 | Outpatient (CLI) | payer MEDICARE | END | disposition home or self-care (01) | LOC: WOUND 10:27 | PROVIDERS: ATTEND Family Medicine | DX: T81.31XD Disruption of external operation (surgical) wound, not elsewhere classified, subsequent encounter (principal); F41.9 Anxiety disorder, unspecified; Z68.24 Body mass index [BMI] 24.0-24.9, adult; K21.9 Gastro-esophageal reflux disease without esophagitis; F32.9 Major depressive disorder, single episode, unspecified; I73.9 Peripheral vascular disease, unspecified; Z87.891 Personal history of nicotine dependence; Y83.8 Other surgical procedures as the cause of abnormal reaction of the patient, or of later complication, without mention of misadventure at the time of the procedure | CPT/HCPCS: 99214; G0463; WOU0463 ==

== ENCOUNTER 2017-10-19 20:56 | Inpatient (IN) | payer MEDICARE ==
[~2017-10-19] VITALS: Ht 160 cm; Wt 68.6 kg
[2017-10-19] MEDS ORDERED: MORPHINE SULFATE 4 MG/ML, 1ML ONE (21:52)
[2017-10-19] MEDS ORDERED: OMNIPAQUE 350 MG/ML, 100ML BOTTLE ONE (22:00)
[2017-10-19] MEDS ORDERED: MORPHINE SULFATE 4 MG/ML, 1ML IVPush PRN ×2 (22:00→23:30)
[2017-10-19 22:03] LABS: BASOPHILS # (AUTO) 0.03 x10^3/uL (0-0.1); BASOPHILS % (AUTO) 0 % (0-1); EOSINOPHILS # (AUTO) 0.05 x10^3/uL (0-0.4); EOSINOPHILS % (AUTO) 0 % (1-7); LYMPHOCYTES # (AUTO) 0.92 x10^3/uL (1-3.4); LYMPHOCYTES % (AUTO) 7 % (22-44); MD NO; MEAN CORPUSCULAR HEMOGLOBIN 30.6 pg (27.0-34.8); MEAN PLATELET VOLUME 8.8 fL (7.4-10.4); MONOCYTES # (AUTO) 0.98 x10^3/uL (0.2-0.8); MONOCYTES % (AUTO) 7 % (2-9); NEUTROPHILS # (AUTO) 11.22 x10^3/uL (1.8-6.8); NEUTROPHILS % (AUTO) 85 % (42-75); PLATELET COUNT 237 x10^3/uL (130-400); RED CELL DISTRIBUTION WIDTH 13.4 % (9.6-15.2)
[2017-10-19 22:10] LABS: ALANINE AMINOTRANSFERASE 922 U/L (12-78); ANION GAP 10 mmol/L (5-15); CALCIUM 9.4 mg/dL (8.5-10.1); CHLORIDE 107 mmol/L (98-107); CREATININE 1.29 mg/dL (0.55-1.02)
[2017-10-19 22:14] LABS: ALKALINE PHOSPHATASE 410 U/L (45-117); BILIRUBIN,TOTAL 1.1 mg/dL (0.2-1.0); TOTAL PROTEIN 8.2 g/dL (6.4-8.2); TROPONIN I < 0.015 ng/mL (0.000-0.045)
[2017-10-19 23:13] LABS: MICROSCOPIC NOT IND
[2017-10-19 23:15] LABS: CULTURE INDICATED? NO
[2017-10-19] MEDS ORDERED: SODIUM CHLORIDE 0.9% 1,000ML IVBOLUS ONE (23:30)
[2017-10-20] MEDS ORDERED: hydrALAzine 20 MG/ML, 1ML IVPush PRN (00:30)
[2017-10-20] MEDS ORDERED: ACETAMINOPHEN 325 MG TABLET PO PRN (00:30)
[2017-10-20] MEDS ORDERED: ENALAPRILAT 1.25 MG/ML, 2ML IVPush PRN (00:30)
[2017-10-20] MEDS ORDERED: ONDANSETRON 2MG/ML, 2ML IVPush PRN (00:30)
[2017-10-20] MEDS: ENOXAPARIN 40 MG/0.4 ML SQ SCH (00:54)
[2017-10-20] MEDS: LACTATED RINGERS 1,000 ML IV SCH ×3 (00:55→17:53)
[2017-10-20 01:16] VITALS: BP 133/78
[2017-10-20] MEDS: morphine SULFATE 10 MG/ML, 1ML IVPush PRN ×3 (01:38→10:31)
[2017-10-20 02:00] VITALS: BP 133/78
[2017-10-20 05:33] LABS: BASOPHILS # (AUTO) 0.02 x10^3/uL (0-0.1); BASOPHILS % (AUTO) 0 % (0-1); EOSINOPHILS # (AUTO) 0.06 x10^3/uL (0-0.4); EOSINOPHILS % (AUTO) 1 % (1-7); LYMPHOCYTES % (AUTO) 16 % (22-44); MD NO; MEAN CORPUSCULAR HEMOGLOBIN 30.4 pg (27.0-34.8); MEAN CORPUSCULAR HGB CONC 33.6 g/dL (32.4-35.8); MEAN CORPUSCULAR VOLUME 90.6 fL (80-100); MEAN PLATELET VOLUME 9.1 fL (7.4-10.4); MONOCYTES # (AUTO) 0.73 x10^3/uL (0.2-0.8); MONOCYTES % (AUTO) 9 % (2-9); NEUTROPHILS # (AUTO) 6.25 x10^3/uL (1.8-6.8); NEUTROPHILS % (AUTO) 75 % (42-75); PLATELET COUNT 208 x10^3/uL (130-400); RED BLOOD COUNT 4.21 x10^6/uL (3.82-5.3); RED CELL DISTRIBUTION WIDTH 13.7 % (9.6-15.2)
[2017-10-20 05:37] LABS: ALBUMIN 3.3 g/dL (3.4-5.0); CALCIUM 8.4 mg/dL (8.5-10.1); CHLORIDE 110 mmol/L (98-107)
[2017-10-20 06:00] LABS: ALANINE AMINOTRANSFERASE 1347 U/L (12-78); ALKALINE PHOSPHATASE 392 U/L (45-117); ANION GAP 8 mmol/L (5-15); BILIRUBIN,TOTAL 1.2 mg/dL (0.2-1.0); CREATININE 1.09 mg/dL (0.55-1.02); TOTAL PROTEIN 6.8 g/dL (6.4-8.2)
[2017-10-20 07:44] VITALS: BP 100/65
[2017-10-20 12:37] VITALS: BP 109/74
[2017-10-20] MEDS ORDERED: ATOR20TA9 PO (16:23)
[2017-10-20] MEDS ORDERED: OMEP-110 PO (16:23)
[2017-10-20] MEDS ORDERED: DOXY25TA18 PO (16:23)
[2017-10-20] MEDS ORDERED: LISI-167 PO (16:23)
[2017-10-20] MEDS ORDERED: CARB1DRO EACHEYE (16:23)
[2017-10-20] MEDS ORDERED: BISACODYL 10 MG SUPP PR PRN (18:00)
[2017-10-20] MEDS: DOCUSATE 100 MG CAPSULE PO PRN (18:05)
[2017-10-20 19:57] VITALS: BP 105/66
[2017-10-20 20:20] VITALS: BP 116/74
[2017-10-21] MEDS: LACTATED RINGERS 1,000 ML IV SCH ×2 (00:30→09:45)
[2017-10-21 01:36] VITALS: BP 118/74
[2017-10-21] MEDS: ENOXAPARIN 40 MG/0.4 ML SQ SCH (02:00)
[2017-10-21 05:48] LABS: BASOPHILS # (AUTO) 0.05 x10^3/uL (0-0.1); BASOPHILS % (AUTO) 1 % (0-1); EOSINOPHILS # (AUTO) 0.21 x10^3/uL (0-0.4); EOSINOPHILS % (AUTO) 4 % (1-7); LYMPHOCYTES # (AUTO) 1.22 x10^3/uL (1-3.4); LYMPHOCYTES % (AUTO) 24 % (22-44); MD NO; MEAN CORPUSCULAR HEMOGLOBIN 29.9 pg (27.0-34.8); MEAN CORPUSCULAR HGB CONC 32.8 g/dL (32.4-35.8); MEAN CORPUSCULAR VOLUME 91.1 fL (80-100); MONOCYTES # (AUTO) 0.55 x10^3/uL (0.2-0.8); MONOCYTES % (AUTO) 11 % (2-9); NEUTROPHILS % (AUTO) 60 % (42-75); PLATELET COUNT 179 x10^3/uL (130-400); RED BLOOD COUNT 3.82 x10^6/uL (3.82-5.3); RED CELL DISTRIBUTION WIDTH 14.1 % (9.6-15.2)
[2017-10-21 05:50] LABS: ALBUMIN 3.1 g/dL (3.4-5.0); ANION GAP 8 mmol/L (5-15); CALCIUM 8.8 mg/dL (8.5-10.1); CHLORIDE 114 mmol/L (98-107)
[2017-10-21 05:54] LABS: ALANINE AMINOTRANSFERASE 920 U/L (12-78); ALKALINE PHOSPHATASE 433 U/L (45-117); CREATININE 1.16 mg/dL (0.55-1.02); TOTAL PROTEIN 6.3 g/dL (6.4-8.2)
[2017-10-21 08:12] VITALS: BP 121/76
[2017-10-21 12:41] VITALS: BP 135/76
[2017-10-21] MEDS: morphine SULFATE 10 MG/ML, 1ML IVPush PRN (12:42)
[2017-10-21] MEDS: FLUTICASONE NASAL SPRAY 16GM NAS SCH ×2 (12:42→21:00)
[2017-10-21] MEDS: SODIUM CHLORIDE 0.9% 1,000 ML IV SCH (16:47)
[2017-10-21 17:14] LABS: INTERNATIONAL NORMALIZED RATIO 0.97 (0.93-1.1)
[2017-10-21] MEDS ORDERED: FENTANYL PF 250 MCG/5ML ONE (19:13)
[2017-10-21] MEDS ORDERED: EPINEPHRINE 1 MG/ML, 1ML ONE (20:09)
[2017-10-21] MEDS ORDERED: BUPIVACAINE 0.25% ONE (20:09)
[2017-10-21] MEDS ORDERED: KETOROLAC 30 MG/1 ML ONE (20:12)
[2017-10-21] MEDS ORDERED: KETAMINE 10 MG/ML, 20ML ONE (20:12)
[2017-10-21] MEDS ORDERED: CEFOTETAN 2 GM ONE (20:12)
[2017-10-21] MEDS ORDERED: OMNIPAQUE 350 MG/ML, 50 ML BOTTLE ONE (20:15)
[2017-10-21] MEDS ORDERED: PROPOFOL 10 MG/ML, 20ML ONE ×2 (20:24→21:32)
[2017-10-21] MEDS ORDERED: DEXAMETHASONE 4 MG/ML, 1ML ONE (20:25)
[2017-10-21] MEDS ORDERED: BUPIVACAINE 0.25% INFIL ONE (20:40)
[2017-10-21] MEDS ORDERED: OMNIPAQUE 350 MG/ML, 50 ML BOTTLE IV ONE (20:54)
[2017-10-21] MEDS ORDERED: MEPERIDINE/PF 25MG/0.5ML IVPush PRN (21:00)
[2017-10-21] MEDS ORDERED: HYDROmorphone 1 MG/ML, 1ML IV PRN (21:00)
[2017-10-21] MEDS ORDERED: LABETALOL 5MG/ML, 20ML IV PRN (21:00)
[2017-10-21] MEDS ORDERED: HYDROcodone/APAP 7.5-325MG/15ML UDC PO PRN (21:00)
[2017-10-21] MEDS ORDERED: MORPHINE SULFATE 4 MG/ML, 1ML IVPush PRN (21:00)
[2017-10-21] MEDS ORDERED: hydrALAzine 20 MG/ML, 1ML IV PRN (21:00)
[2017-10-21] MEDS ORDERED: PROMETHAZINE 12.5 MG SUPP PR PRN (21:00)
[2017-10-21] MEDS ORDERED: ONDANSETRON ODT 8 MG PO PRN (21:00)
[2017-10-21] MEDS ORDERED: ROCURONIUM 10MG/ML,5ML ONE (21:33)
[2017-10-21] MEDS ORDERED: ONDANSETRON 2MG/ML, 2ML ONE (21:33)
[2017-10-21] MEDS ORDERED: FENTANYL PF 100 MCG/2ML ONE (22:13)
[2017-10-21] MEDS: FENTANYL PF 100 MCG/2ML IV PRN ×3 (22:15→22:32)
[2017-10-21] MEDS ORDERED: MORPHINE SULFATE 4 MG/ML, 1ML ONE (22:34)
[2017-10-21 23:27] VITALS: BP 148/78
[2017-10-22 01:37] VITALS: BP 145/85
[2017-10-22] MEDS: morphine SULFATE 10 MG/ML, 1ML IVPush PRN ×6 (02:05→20:41)
[2017-10-22 04:00] VITALS: BP 138/75
[2017-10-22 06:07] LABS: CHLORIDE 107 mmol/L (98-107)
[2017-10-22 06:30] LABS: ALANINE AMINOTRANSFERASE 670 U/L (12-78); ALBUMIN 3.1 g/dL (3.4-5.0); ALKALINE PHOSPHATASE 441 U/L (45-117); ANION GAP 9 mmol/L (5-15); BILIRUBIN,TOTAL 1.1 mg/dL (0.2-1.0); CREATININE 1.38 mg/dL (0.55-1.02); TOTAL PROTEIN 6.4 g/dL (6.4-8.2)
[2017-10-22 07:05] VITALS: BP 112/69
[2017-10-22] MEDS: ENOXAPARIN 40 MG/0.4 ML SQ SCH (07:56)
[2017-10-22] MEDS: FLUTICASONE NASAL SPRAY 16GM NAS SCH ×2 (07:56→20:41)
[2017-10-22 12:18] VITALS: BP 99/62
[2017-10-22] MEDS: SODIUM CHLORIDE 0.9% 1,000 ML IV SCH (13:12)
[2017-10-22] MEDS: DOCUSATE 100 MG CAPSULE PO PRN (16:58)
[2017-10-22 19:58] VITALS: BP 107/67
[2017-10-23] MEDS: morphine SULFATE 10 MG/ML, 1ML IVPush PRN ×3 (00:09→06:30)
[2017-10-23] MEDS: SODIUM CHLORIDE 0.9% 1,000 ML IV SCH (00:13)
[2017-10-23 00:48] VITALS: BP 103/68
[2017-10-23 07:05] VITALS: BP 87/53
[2017-10-23] MEDS ORDERED: SODIUM CHLORIDE 0.9% 1,000ML IVBOLUS ONE (07:30)
[2017-10-23] MEDS: FLUTICASONE NASAL SPRAY 16GM NAS SCH (08:24)
[2017-10-23] MEDS: ENOXAPARIN 40 MG/0.4 ML SQ SCH (08:24)
[2017-10-23] MEDS: DOCUSATE 100 MG CAPSULE PO PRN (10:32)
[2017-10-23 10:42] VITALS: BP 127/76
[2017-10-23] MEDS ORDERED: HYDROcodone/APAP 5/325 TABLET PO PRN ×2 (11:00→12:30)
[2017-10-23 13:44] VITALS: BP 125/79
[2017-10-23] MEDS ORDERED: DOCU-131 PO (16:35)
[2017-10-23] MEDS ORDERED: ONDA4TAB7 PO (16:36)
== END 2017-10-23 16:55 | disposition home or self-care (01) | DRG 417 ==
LOC: ED 22:42 → SUATTDRO 10-20 → EDIP 10-20 00:33 → 4EST 10-20 00:35 → DCLOUNGE 10-23 16:31
PROVIDERS: ADMIT Hospitalist; ATTEND Hospitalist
PROC: BF131ZZ Fluoroscopy of Gallbladder and Bile Ducts using Low Osmolar Contrast (ICD-10-PCS; 2017-10-21)
PROC: 0DNU4ZZ Release Omentum, Percutaneous Endoscopic Approach (ICD-10-PCS; 2017-10-21)
PROC: 0FN44ZZ Release Gallbladder, Percutaneous Endoscopic Approach (ICD-10-PCS; 2017-10-21)
PROC: 0FT44ZZ Resection of Gallbladder, Percutaneous Endoscopic Approach (ICD-10-PCS; principal; 2017-10-21 18:30)
DX: K85.10 Biliary acute pancreatitis without necrosis or infection (principal); E43 Unspecified severe protein-calorie malnutrition; N17.9 Acute kidney failure, unspecified; I73.9 Peripheral vascular disease, unspecified; F17.200 Nicotine dependence, unspecified, uncomplicated; K66.0 Peritoneal adhesions (postprocedural) (postinfection); K80.20 Calculus of gallbladder without cholecystitis without obstruction; Z79.01 Long term (current) use of anticoagulants; N26.1 Atrophy of kidney (terminal); Z88.8 Allergy status to other drugs, medicaments and biological substances; Z68.26 Body mass index [BMI] 26.0-26.9, adult
CPT/HCPCS: 36415; 71045; 74177; 74181; 74300; 76700; 80053; 80074; 81003; 83690; 83735; 84100; 84478; 84484; 85025; 85610; 88304; 93005; 96374; C1729; J0171; J1100; J1650; J1885; J2405; J2704; J3010; J3490; Q9967; C1760; J2270; J7030; J7120; S0074